=== PATIENT | male | born 1995 | race Caucasian/White ===

== ENCOUNTER 2019-08-17 00:12 | Emergency (ER) | payer BC ==
[2019-08-17] MEDS ORDERED: oxyCODONE/Acetamin 5/325 MG* TAB PO ONE (00:33)
--- NOTE | 2019-08-17 00:45 | ED ---
Skin Complaint - HPI Summary HPI Summary: 23-year-old male presents pilondial cyst for the past couple days. [facility] and started [facility]. The area was not drained. He states that his pain is getting worse. He denies any fevers or chills. This has never had before. He denies any history of MRSA. no spreading redness. he states he is unable to sit down due to the pain. - History of Current Complaint Chief Complaint: EDRashSkinAbscess Time Seen by Provider: 08/17/19 00:27 Stated Complaint: CYST PAIN PER PT Pain Intensity: 7 - Allergy/Home Medications Allergies/Adverse Reactions: Allergies Allergy/AdvReac Type Severity Reaction Status Date / Time No Known Allergies Allergy Verified 08/17/19 00:15 Home Medications: Home Medications DOXYcycline CAP(*) [DOXYcycline 100MG CAP(*)] 100 mg PO BID #19 cap 08/17/19 [Rx ] PMH/Surg Hx/FS Hx/Imm Hx Endocrine/Hematology History: Denies: Hx Anticoagulant Therapy Respiratory History: Denies: Hx Asthma Infectious Disease History: No Infectious Disease History: Denies: Traveled Outside the [place] in Last 30 Days - Family History Known Family History: Positive: Non-Contributory - Social History Alcohol Use: Occasionally Substance Use Type: Reports: None Review of Systems Negative: Fever Negative: Chest Pain Negative: Shortness Of Breath Positive: Other - pilondial cyst All Other Systems Reviewed And Are Negative: Yes Physical Exam Triage Information Reviewed: Yes Vital Signs On Initial Exam: Initial Vitals Temp Pulse Resp BP Pulse Ox 97.8 F 89 16 134/91 100 08/17/19 00:14 08/17/19 00:14 08/17/19 00:14 08/17/19 00:14 08/17/19 00:14 Vital Signs Reviewed: Yes Appearance: Positive: Well-Appearing Skin: Positive: Warm, Dry, Other - area of edema and erythema to right buttock Head/Face: Positive: Normal Head/Face Inspection Eyes: Positive: Normal, Conjunctiva Clear ENT: Positive: Pharynx normal Respiratory/Lung Sounds: Positive: Clear to Auscultation, Breath Sounds Present Cardiovascular: Positive: Normal, RRR Musculoskeletal: Positive: Normal Neurological: Positive: Normal Psychiatric: Positive: Normal Procedures - Sedation Patient Received Moderate/Deep Sedation with Procedure: No - Incision and Drainage buttock Site: right buttock Anesthesia: Topical Instrument(s): Scalpel Packing: Gauze Diagnostics - Vital Signs Vital Signs Temp Pulse Resp BP Pulse Ox 08/17/19 00:14 97.8 F 89 16 134/91 100 - Laboratory Lab Statement: Any lab studies that have been ordered have been reviewed, and results considered in the medical decision making process. Course/Dx - Course Course Of Treatment: 23-year-old male presents pilondial cyst for the past couple days. [facility] at [facility] and started on [facility]. The area was not drained. He states that his pain is getting worse. He denies any fevers or chills. This has never had before. He denies any history of MRSA. no spreading redness. he states he is unable to sit down due to the pain. on exam has area of edema and erythema on right buttock. I&D area and got copious amount of pus. placed packing. patient was placed on keflex so will change to doxycyline. told to return in two days for packing change. patient understand and agrees with plan. - Differential Diagnoses - Skin Complaint Differential Diagnoses: Abscess, Cellulitis, Contact Dermatitis - Diagnoses Provider Diagnoses: Pilonidal abscess Discharge ED - Sign-Out/Discharge Documenting (check all that apply): Patient Departure - Discharge Plan Condition: Good Disposition: HOME Prescriptions: DOXYcycline CAP(*) [DOXYcycline 100MG CAP(*)] 100 mg PO BID #19 cap Patient Education Materials: Abscess (ED) Referrals: Taylor Escudero MD [Medical Doctor] - Additional Instructions: start doxycycline twice a day for 10 days with food Apply warm compresses to area Take ibuprofen or Tylenol for pain every 6 hours follow up in two days for wound check at urgent care or ED if packing change Follow up with surgery if no improvement Return to ED if develop fever, area of redness spreads, or any new or worsening symptoms - Billing Disposition and Condition Condition: GOOD Disposition: Home
[2019-08-17] MEDS ORDERED: DOXYcycline CAP(*) 100 MG PO ONE (01:22)
[2019-08-17 02:02] VITALS: BP 125/85
== END 2019-08-17 02:01 | disposition home or self-care (01) ==
LOC: ED 00:12
DX: L05.01 Pilonidal cyst with abscess (principal)
CPT/HCPCS: 10080; 87070; 87076; 87077; 87205; 87640; 87641; 99282; A9270-GY

== ENCOUNTER 2019-08-18 11:57 | Emergency (ER) | payer BC ==
--- NOTE | 2019-08-18 12:21 | UC ---
Skin Complaint HPI - HPI Summary HPI Summary: 23 yo male presents for wound check. He tells me that he was in the ED 2 nights ago and had a pilonidal cyst I&D'd with packing placed. He was placed on doxycycline and a culture was obtained. He is here today for a wound check. States feels much better overall. Has not removed the dressing placed from the ED. Denies fever or chills. - History of Current Complaint Time Seen by Provider: 08/18/19 12:20 Stated Complaint: WOUND CHECK Hx Obtained From: Patient Onset/Duration: Gradual Onset Onset Severity: Severe Current Severity: Mild Pain Intensity: 4 Pain Scale Used: 0-10 Numeric - Allergy/Home Medications Allergies/Adverse Reactions: Allergies Allergy/AdvReac Type Severity Reaction Status Date / Time No Known Allergies Allergy Verified 08/18/19 12:23 Home Medications: Home Medications DOXYcycline CAP(*) [DOXYcycline 100MG CAP(*)] 100 mg PO BID #19 cap 08/17/19 [ Rx Confirmed 08/18/19] PMH/Surg Hx/FS Hx/Imm Hx - Additional Past Medical History Additional PMH: None Other History Of: Negative For: Anticoagulant Therapy - Family History Known Family History: Positive: Non-Contributory - Social History Alcohol Use: Occasionally Substance Use Type: None Smoking Status (MU): Never Smoked Tobacco Review of Systems All Other Systems Reviewed And Are Negative: No Constitutional: Positive: Negative Skin: Positive: Other - Wound check Respiratory: Positive: Negative Cardiovascular: Positive: Negative Neurological/Mental Status: Positive: Negative Psychological: Positive: Negative Physical Exam - Summary Physical Exam Summary: GENERAL: NAD. WDWN. No pain distress. SKIN: Superior gluteal cleft with 1.0cm linear incision - mild induration. Faint surrounding erythema. NTTP without warmth. Scant serosanginous drainage. CHEST: No accessory muscle use. Breathing comfortably and in no distress. CV: Pulses intact. Cap refill <2seconds NEURO: Alert. PSYCH: Age appropriate behavior. Triage Information Reviewed: Yes Vital Signs: Vital Signs: Temp Pulse Resp BP Pulse Ox 98.8 F 73 16 140/81 100 08/18/19 12:24 08/18/19 12:24 08/18/19 12:24 08/18/19 12:24 08/18/19 12:24 Vital Signs Reviewed: Yes Course/Dx - Course Course Of Treatment: Packing removed. Scant drainage with palpated. Culture results with peptostrep, but sens still pending. Dressing with foam dressing and advised to continue doxycycline. Change dressing daily. - Diagnoses Provider Diagnosis: Pilonidal abscess Discharge ED - Sign-Out/Discharge Documenting (check all that apply): Patient Departure All imaging exams completed and their final reports reviewed: No Studies - Discharge Plan Condition: Stable Disposition: HOME Patient Education Materials: Pilonidal Cyst (ED) Referrals: No Primary Care Phys,NOPCP [Primary Care Provider] - Additional Instructions: If you develop a fever, shortness of breath, chest pain, new or worsening symptoms - please call your PCP or go to the ED immediately. Change the dressing every 1.5-2 days until well healed. Continue taking your antibiotic as prescribed. - Billing Disposition and Condition Condition: STABLE Disposition: Home
[2019-08-18 12:40] VITALS: BP 140/81
== END 2019-08-18 12:52 | disposition home or self-care (01) ==
LOC: UCEAST 11:57
DX: L05.01 Pilonidal cyst with abscess (principal)
CPT/HCPCS: 99212; G0463